=== PATIENT | female | born 1985 | race Caucasian/White ===

== ENCOUNTER 2018-02-08 11:18 | Outpatient (CLI) | payer MEDICAID | END 2018-02-08 13:40 | disposition home or self-care (01) | LOC: OBT 11:18 → L-D 11:18 → OBT 13:40 | DX: O62.9 Abnormality of forces of labor, unspecified (principal); Z3A.37 37 weeks gestation of pregnancy | CPT/HCPCS: 76818 ==

== ENCOUNTER 2018-02-08 13:32 | Emergency (ER) | payer MEDICAID ==
[2018-02-08] MEDS: LIDOCAINE 2% (MDV) 20 ML INJ INJ (15:25)
[2018-02-08] MEDS: CEFTRIAXONE 1 GM INJ IM (15:25)
== END 2018-02-08 16:05 | disposition home or self-care (01) ==
LOC: FTE 13:32
DX: O99.713 Diseases of the skin and subcutaneous tissue complicating pregnancy, third trimester (principal); L02.416 Cutaneous abscess of left lower limb
CPT/HCPCS: 96372; 99284-25; J0696